=== PATIENT | female | born 1985 | race Caucasian/White ===

== ENCOUNTER 2017-12-31 19:22 | Emergency (ER) | payer SELFPAY ==
[~2017-12-31] VITALS: Ht 175.3 cm; Wt 65.8 kg
--- NOTE | 2017-12-31 19:42 | NUR ---
Dr. Florin JIMENEZ MD at bedside for MSE.
[2017-12-31] MEDS ORDERED: diphenhydrAMINE 50 MG/1 ML VIAL ONE ×2 (19:53→22:24)
[2017-12-31] MEDS ORDERED: PROCHLORPERAZINE EDISYLATE 10 MG/2 ML VIAL ONE (19:54)
[2017-12-31] MEDS: PROCHLORPERAZINE EDISYLATE 10 MG/2 ML VIAL IV ONE (19:56)
[2017-12-31] MEDS: diphenhydrAMINE 50 MG/1 ML VIAL IV ONE ×2 (19:56→22:27)
[2017-12-31] MEDS: IV NORMAL SALINE 1000 ML BAG IV ONE ×2 (19:56→22:27)
[2017-12-31 20:30] LABS: BASOPHILS % (AUTO) 0.3 % (0.0-2.0); EOSINOPHILS % (AUTO) 0.4 % (0.0-7.0); HEMATOCRIT 41.7 % (31.2-41.9); HEMOGLOBIN 14.5 g/dL (10.9-14.3); LYMPHOCYTES % (AUTO) 28.4 % (20.5-51.5); MEAN CORPUSCULAR HEMOGLOBIN 36.2 uug (24.7-32.8); MEAN CORPUSCULAR HGB CONC 35 g/dL (32.3-35.6); MEAN CORPUSCULAR VOLUME 104.3 fL (75.5-95.3); MONOCYTES # (AUTO) 0.7 K/uL (2.0-10.0); MONOCYTES % (AUTO) 10.3 % (0.0-11.0); NEUTROPHILS # (AUTO) 4.3 K/uL (1.8-8.9); NEUTROPHILS % (AUTO) 60.6 % (38.5-71.5); PLATELET COUNT (AUTO) 210 K/uL (179-408); WHITE BLOOD COUNT (AUTO) 7.1 K/uL (3.8-11.8)
[2017-12-31 20:38] LABS: POTASSIUM 3.8 mmol/L (3.5-5.1)
[2017-12-31 20:44] LABS: BILIRUBIN,DIRECT 0.1 mg/dL (0.0-0.2); BILIRUBIN,TOTAL 0.7 mg/dL (0.2-1.0); TOTAL PROTEIN, SERUM 7.9 g/dL (6.4-8.2)
--- NOTE | 2017-12-31 20:55 | NUR ---
Pt went down to radiology dept. for CT scan.
[2017-12-31] MEDS ORDERED: METOCLOPRAMIDE HCL 10 MG/2 ML VIAL ONE (22:24)
[2017-12-31] MEDS: METOCLOPRAMIDE HCL 10 MG/2 ML VIAL IV ONE (22:27)
--- NOTE | 2017-12-31 23:28 | NUR ---
IV removed. Catheter intact and site benign. Pressure and 4x4 gauze applied to site. No bleeding noted.
--- NOTE | 2017-12-31 23:34 | NUR ---
Patient discharged to home in stable conditon. Written and verbal after care instructions given. Patient verbalizes understanding of instructions. Pt has friend to drive home. All belongings with pt. VSS.
[2017-12-31 23:36] VITALS: BP 114/59
== END 2017-12-31 23:38 | disposition home or self-care (01) ==
LOC: ER 19:23
DX: G43.A0 Cyclical vomiting, in migraine, not intractable (principal); F12.10 Cannabis abuse, uncomplicated; Z88.2 Allergy status to sulfonamides; Z88.5 Allergy status to narcotic agent
CPT/HCPCS: 36415; 70030-TC; 83690; 84703; 85025; 85730; A4663; J0780; J1200; J2765; J7030